=== PATIENT | male | born 1970 | race Caucasian/White ===

== ENCOUNTER 2018-03-12 11:28 | Emergency (ER) | payer MEDICAID ==
[~2018-03-12] VITALS: Ht 177.8 cm; Wt 83.9 kg
[2018-03-12 11:37] VITALS: Ht 177.8 cm; Wt 83.9 kg
[2018-03-12 12:39] VITALS: BP 140/70
== END 2018-03-12 12:39 | disposition home or self-care (01) ==
LOC: ED 11:28
DX: J40 Bronchitis, not specified as acute or chronic (principal); G89.29 Other chronic pain; F31.9 Bipolar disorder, unspecified; F17.210 Nicotine dependence, cigarettes, uncomplicated; Z88.0 Allergy status to penicillin; Z91.030 Bee allergy status

== ENCOUNTER 2018-08-02 18:50 | Emergency (ER) | payer OTHER ==
[~2018-08-02] VITALS: Ht 175.3 cm; Wt 91.6 kg
[2018-08-02 18:59] VITALS: Ht 175.3 cm; Wt 91.6 kg
[2018-08-02 19:47] VITALS: BP 161/91
== END 2018-08-02 19:47 | disposition home or self-care (01) ==
LOC: ED 18:50
DX: S60.812A Abrasion of left wrist, initial encounter (principal); S60.811A Abrasion of right wrist, initial encounter; F20.9 Schizophrenia, unspecified; F17.210 Nicotine dependence, cigarettes, uncomplicated; Z98.890 Other specified postprocedural states; Z88.0 Allergy status to penicillin; Z91.030 Bee allergy status; X58.XXXA Exposure to other specified factors, initial encounter; Y93.89 Activity, other specified; Y92.89 Other specified places as the place of occurrence of the external cause; Y99.8 Other external cause status
CPT/HCPCS: 99406

== ENCOUNTER 2018-08-03 04:36 | Emergency (ER) | payer OTHER ==
[~2018-08-03] VITALS: Ht 175.3 cm; Wt 95.7 kg
[2018-08-03 04:41] VITALS: Ht 175.3 cm; Wt 95.7 kg
[2018-08-03 05:42] VITALS: BP 122/75
== END 2018-08-03 05:42 | disposition left against medical advice (07) ==
LOC: ED 04:36
DX: Z53.21 Procedure and treatment not carried out due to patient leaving prior to being seen by health care provider (principal)

== ENCOUNTER 2018-08-20 03:59 | Emergency (ER) | payer OTHER ==
[~2018-08-20] VITALS: Ht 175.3 cm; Wt 84.8 kg
[2018-08-20 04:07] VITALS: Ht 175.3 cm; Wt 84.8 kg
[2018-08-20 05:49] VITALS: BP 130/80
== END 2018-08-20 05:49 | disposition home or self-care (01) ==
LOC: ED 03:59
DX: S69.92XA Unspecified injury of left wrist, hand and finger(s), initial encounter (principal); F20.9 Schizophrenia, unspecified; G89.29 Other chronic pain; F31.9 Bipolar disorder, unspecified; Z88.0 Allergy status to penicillin; Z91.030 Bee allergy status; W46.0XXA Contact with hypodermic needle, initial encounter; Y93.89 Activity, other specified; Y92.89 Other specified places as the place of occurrence of the external cause; Y99.8 Other external cause status

== ENCOUNTER 2018-08-21 05:55 | Emergency (ER) | payer OTHER ==
[~2018-08-21] VITALS: Ht 175.3 cm; Wt 89.4 kg
[2018-08-21 06:00] VITALS: Ht 175.3 cm; Wt 89.4 kg
[2018-08-21 07:06] LABS: BASOPHIL % 0.3 % (0-2); PLATELET COUNT 193 x10^3mcL (130-400)
[2018-08-21 07:22] LABS: CALCIUM 8.7 mg/dL (8.5-10.1); CARBON DIOXIDE 25.6 mmol/L (21-32); CHLORIDE SERUM 102 mmol/L (98-107); CREATININE SERUM 0.9 mg/dL (0.7-1.3); GFR1 > 60 mL/min; GLUCOSE SERUM 83 mg/dL (74-106); POTASSIUM SERUM 3.2 mmol/L (3.5-5.1); SODIUM SERUM 140 mmol/L (136-145)
[2018-08-21 07:26] LABS: ALBUMIN 3.7 g/dL (3.4-5.0); ALKALINE PHOSPHATASE 55 U/L (46-116); ALT/SGPT 83 U/L (16-63); AST/SGOT 76 U/L (15-37); TOTAL PROTEIN, SERUM 7.1 g/dL (6.4-8.2)
[2018-08-21 09:50] VITALS: BP 110/66
== END 2018-08-21 09:50 | disposition home or self-care (01) ==
LOC: ED 05:55
PROVIDERS: Emergency Medicine
DX: L03.114 Cellulitis of left upper limb (principal); G89.29 Other chronic pain; Z98.890 Other specified postprocedural states; Z88.0 Allergy status to penicillin; Z91.030 Bee allergy status
CPT/HCPCS: J3370; J3490; J7040

== ENCOUNTER 2018-08-23 23:12 | Inpatient (IN) | payer OTHER ==
[~2018-08-23] VITALS: Ht 175.3 cm; Wt 86.2 kg
[2018-08-23 23:59] VITALS: Ht 175.3 cm; Wt 86.2 kg
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
[2018-08-24 00:50] LABS: BASOPHIL % 0.4 % (0-2); PLATELET COUNT 234 x10^3mcL (130-400); RED CELL DISTRIBUTION WIDTH 13.1 % (11.5-14.5)
--- NOTE | 2018-08-24 00:54 | NUR ---
SPOKE TO [employer] WITH ALLIED INSURANCE. GAVE MEDICAL PARAMETERS.
[2018-08-24 01:13] LABS: ALBUMIN 3.4 g/dL (3.4-5.0); ALKALINE PHOSPHATASE 52 U/L (46-116); ALT/SGPT 101 U/L (16-63); AST/SGOT 108 U/L (15-37); BILIRUBIN TOTAL 0.4 mg/dL (0.20-1.00); CALCIUM 8.7 mg/dL (8.5-10.1); CHLORIDE SERUM 102 mmol/L (98-107); GFR1 > 60 mL/min; GLUCOSE SERUM 99 mg/dL (74-106); SODIUM SERUM 139 mmol/L (136-145); TOTAL PROTEIN, SERUM 6.5 g/dL (6.4-8.2)
[2018-08-24] MEDS ORDERED: NEURONTIN100 MG (01:56)
[2018-08-24] MEDS ORDERED: GABAPENTIN100 M2 (01:57)
[2018-08-24] MEDS ORDERED: TRUVADA 200 MG1 EACH PO (01:57)
[2018-08-24] MEDS ORDERED: ISENTRESS400 MG PO (01:57)
[2018-08-24] MEDS ORDERED: CLINDAMYCIN HC300 MG PO (01:58)
[2018-08-24] MEDS ORDERED: BAC PO (01:58)
--- NOTE | 2018-08-24 02:15 | NUR ---
REPORT CALLED TO AJITH CASTANEDA TO ASSUME CARE OF PT.
--- NOTE | 2018-08-24 02:32 | NUR ---
PT TRANSFERRED TO MED/SURG BED 236B VIA GURNEY WITH EMT LEVI AT PT SIDE. PT TRANSFERRED WITHOUT INCIDENCE.
[2018-08-24 02:38] LABS: MAGNESIUM 1.9 mg/dL (1.8-2.4); PHOSPHOROUS 2.8 mg/dL (2.5-4.9)
[2018-08-24 02:43] LABS: CHOLESTEROL/HDL RATIO 2.2
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
[2018-08-24 03:05] LABS: T3 TOTAL 0.97 ng/mL
--- NOTE | 2018-08-24 03:05 | NUR ---
DR. GRESHAM AT BEDSIDE TO ASSESS THE PT.
[2018-08-24 03:06] LABS: FREE THYROXINE INDEX 2.3 ug/dL (1.4-4.5)
--- NOTE | 2018-08-24 03:40 | NUR ---
RUBINA AND KIMBERLEY TAKEN FROM PT. WILL BRING TO PHARMACY IN AM.
[2018-08-24 04:10] VITALS: BP 121/76
--- NOTE | 2018-08-24 04:11 | NUR ---
PT RESTING IN BED WITH EYES CLOSED. LAYING ON L SIDE. APPEARS TO BE SLEEPING. NO S/SX OF PAIN NOTED. BREATHING EVEN/UNLABORED ON RA. CALL LIGHT WITHIN REACH, BED AT LOWEST POSITION. WILL CONTINUE TO MONITOR.
[2018-08-24 04:20] LABS: microscopic required? NO
[2018-08-24 04:46] LABS: AMPHETAMINE QUAL UR NONE DETECTED (See below)
[2018-08-24 04:47] LABS: urine erythrocyte NEGATIVE (NEGATIVE)
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
--- NOTE | 2018-08-24 05:53 | NUR ---
PT RESTING IN BED WITH EYES CLOSED. SNORING QUIETLY. NO SIGNS OF DISTRESS NOTED. BREATHING EVEN/UNLABORED ON RA. DRESSING TO RH IN PLACE AND INTACT. CALL LIGHT WITHIN REACH, BED AT LOWEST POSITION. WILL ENDORSE TO DAY NURSE.
[2018-08-24 05:57] LABS: CALCIUM 8.3 mg/dL (8.5-10.1); CARBON DIOXIDE 27.6 mmol/L (21-32); CHLORIDE SERUM 105 mmol/L (98-107); GFR1 > 60 mL/min; GLUCOSE SERUM 107 mg/dL (74-106); POTASSIUM SERUM 3.2 mmol/L (3.5-5.1); SODIUM SERUM 140 mmol/L (136-145)
[2018-08-24 05:58] LABS: BASOPHIL % 0.3 % (0-2); PLATELET COUNT 227 x10^3mcL (130-400); RED CELL DISTRIBUTION WIDTH 13.5 % (11.5-14.5)
[2018-08-24 06:19] VITALS: BP 114/61
--- NOTE | 2018-08-24 06:30 | NUR ---
HOME MEDS BROUGHT DOWN TO PHARMACY FOR VERIFICATION.
--- NOTE | 2018-08-24 07:16 | NUR ---
RECEIVED REPORT FROM ADRIEN CASTANEDA. PT SLEEPING COMFORTABLY IN BED. IV TO RAC IS PATENT AND INFUSING NS @ 100 ML/HR. NO REDNESS OR PAIN. PT ON ROOM AIR. NO C/O SOB AND NO DISTRESS NOTED. ALL QUESTIONS AND CONCERNS ADDRESSED.
--- NOTE | 2018-08-24 08:40 | NUR ---
PT K+ 3.2 ORDERS ALREADY ENTERED BY .
[2018-08-24 09:31] VITALS: BP 125/79
--- NOTE | 2018-08-24 10:09 | NUR ---
PER PATIENT REQUEST, I REWRAPPED PT LT MIDDLE FINGER. DRESSING WAS FALLING OFF. 4X4 GAUZE APPLIED AND WRAPPED WITH KERLIX ROLL.
--- NOTE | 2018-08-24 15:43 | NUR ---
IN TO SEE AND ASSESS PATIENT AFTER LUNCH. PT SLEEPING COMFORTABLY IN BED. ALL NEEDS MET.
[2018-08-24 17:22] VITALS: BP 124/76
--- NOTE | 2018-08-24 19:10 | NUR ---
PT RECIEVED FROM THE DAY SHIFT RN. PT IS AWAKE AND ALERT X4, PT HAS RAPID SPEECH AT TIMES HARD TO UNDERSTAND. PT HAS BEEN NON COMPLIANT WITH CARE, ATTEMPTING TO REMOVE BANDAGE ON HIS LEFT MIDDLE FINGER. PT IS VERY TALKATIVE AND ANXIOUS. SAFETY AND COMFORT MEASURES MAINTAINED, BED IN LOWEST POSITION, CALL LIGHT WITHIN REACH, PT COMPLAINS OF PAIN, PT STATES IT IS A CONSTANT SHARP PAIN IN THE LEFT MIDDLE FINGER. PT WAS MEDICATED BEFORE CHANGE OF SHIFT BY RN VIJAY. WILL CONTINUE TO MONITOR AT THIS TIME.
--- NOTE | 2018-08-24 19:10 | NUR ---
AT CHANGE OF SHIFT REPORT IN PATIENTS ROOM. PT ATTEMPTING TO SILENCE IV PUMP ALARM, PT TURNED OFF THE PUMP AND PUT IT ON STANDBY, TONYA LINARES INSTRUCTED PT TO NOT ATTMEPT TO USE THE PUMP OR SILENCE ALARMS THAT IT IS POLICY THAT THE NURSING STAFF USES THE PUMP. PT SEEMS TO BE ANXIOUS AT THIS TIME. WILL CONTINUE TO MONITOR AT THIS TIME.
--- NOTE | 2018-08-24 19:36 | NUR ---
REPORT GIVEN TO JUJU CASTANEDA. PT RESTING COMFORTABLY IN BED. ALL NEEDS MET. ALL QUESTIONS AND CONCERNS ADDRESSED. ALL CARES ENDORSED.
[2018-08-24 19:40] VITALS: BP 145/73
--- NOTE | 2018-08-24 20:24 | NUR ---
PT WOUND REDRESSED, PT INSTRUCTED TO NOT REMOVE DRESSING. NO COMPLAINTS AT THIS TIME. WILL CONTINUE TO MONITOR.
--- NOTE | 2018-08-25 00:11 | NUR ---
PT IS RESTING IN BED WITH EYES CLOSED AND TV ON AT THIS TIME. NO ACUTE DISTRESS NOTED. IV INFUSING AND INTACT AT THIS TIME. NO S/S OF PAIN NOTED.
--- NOTE | 2018-08-25 01:32 | NUR ---
WHILE ON LUNCH BREAK WAS NOTIFIED BY TONYA REYES AND TONYA POLANCO HAD TALKED TO PATIENT ABOUT HAVING BEDSIDE CBD EDIBLES. PT HOME MEDS WERE TAKEN FROM THE PATIENT AND DR NICKERSON WAS IN ROOM TALKING TO PT ABOUT POLICY WITH HOME MEDICATIONS BEING TAKEN WITHOUT STAFF KNOWLEDGE. TONYA MATUTE WAS MADE AWARE WHEN RETURNED FROM LUNCH. AWAITING FOR ADMITTING STAFF TO COME AND TAKE THE MEDICATION. SECURITY WAS NOTIFIED, AND CAME TO THE PATIENTS ROOM.
--- NOTE | 2018-08-25 04:10 | NUR ---
PT COMPLAINING OF PAIN IN THE LEFT MIDDLE FINGER. PT STATES PAIN IS A 8/10 CONSTANT SHARP PAIN. PRN NORCO GIVEN. SAFETY AND COMFORT MEASURES MAINTAINED, BED IN LOWEST POSITION, CALL LIGHT WITHIN REACH.
[2018-08-25 04:38] VITALS: BP 133/64
--- NOTE | 2018-08-25 05:06 | NUR ---
PT HAS SLEPT IN INTERMITTENT INTERVALS. PT HAS BEEN ALERT AND ORIENTED X4, PT HAS BEEN ANXIOUS AT TIMES AND RAPID SPEECH. PT IS CURRENTLY RESTING IN BED WITH EYES CLOSED AND TV ON. NO ACUTE DISTRESS NOTED. NO S/S OF PAIN NOTED AT THIS TIME. SAFETY AND COMFORT MEASURES MAINTAINED, BED IN LOWEST POSITION, CALL LIGHT WITHIN REACH. WILL ENDORSE CONTINUITY OF CARE TO THE ONCOMING RN.
[2018-08-25 06:14] LABS: PLATELET COUNT 217 x10^3mcL (130-400); RED CELL DISTRIBUTION WIDTH 13.5 % (11.5-14.5)
[2018-08-25 06:30] LABS: CALCIUM 8.2 mg/dL (8.5-10.1); CARBON DIOXIDE 25.7 mmol/L (21-32); CHLORIDE SERUM 107 mmol/L (98-107); CREATININE SERUM 0.8 mg/dL (0.7-1.3); GFR1 > 60 mL/min; GLUCOSE SERUM 99 mg/dL (74-106); MAGNESIUM 1.9 mg/dL (1.8-2.4); PHOSPHOROUS 2.2 mg/dL (2.5-4.9); POTASSIUM SERUM 4.4 mmol/L (3.5-5.1); SODIUM SERUM 141 mmol/L (136-145)
--- NOTE | 2018-08-25 07:30 | NUR ---
PT ENDORSE TO ME THIS MORNING. AA/O X4. BREATHING EVEN AND UNLABORED ON RA. NO ACUTE RESP DISTRESS OR SOB NOTED. MEDSURG. DENIES ANY CP OR PRESSURE. LAST BM 08/25. VOIDS FREELY. AMB. L MIDDLE FINGER DRESSING INTACT/ NO NEW DRAINAGE NOTED. IV TO THE RAC INTACT AND PATENT, INFUSING AT 100ML/HR. CALL LIGHT IN REACH. BED IN LOW POSITION. WILL CONTINUE PLAN OF CARE.
[2018-08-25 08:52] VITALS: BP 158/77
[2018-08-25 11:43] LABS: ATYPICAL LYMPH 3 %; BAND NEUTROPHIL 1 % (0-10); BASOPHIL 0 % (0-2); MONOCYTE 14 % (0-7); SEGMENTED NEUTROPHILS 52 % (37-75)
[2018-08-25 11:44] LABS: PLATELET MORPHOLOGY PLATELETS DECREASED
[2018-08-25 11:46] LABS: rbc morphology (normal/abnorm) ABNORMAL (NORMAL)
--- NOTE | 2018-08-25 12:06 | NUR ---
MISSY MORAN AT BEDSIDE, PER OFFICER PT CALLED REPORTING A THEFT THAT TOOK PLACE PRIOR TO HIS ADMISSION. WILL CONTINUE TO MONITOR.
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
--- NOTE | 2018-08-25 14:57 | NUR ---
PT REQUESTING TO LEAVE AMA. IV REMOVED WITH CATHETER INTACT. NO REDNESS/INFLAMMATION/DISCOMFORT NOTED. PRIMARY NURSE, CHARGE NURSE. DIGITAL ACCOUNT COORDINATOR AND SECURTIY NOTIFIED THAT PT REQUESTING TO LEAVE AMA. RISKS OF LEAVING AMA AND PURPOSE OF TREATMENT EXPLAINED TO LEAVE. PT VERBALIZED UNDERSTANDING BUT CONTINUED TO WANT TO LEAVE AMA. PT PROVIDED WITH ORANGE SLIP FOR BELONGINGS IN SAFE, SECURITY AND DIGITAL ACCOUNT COORDINATOR NOTIFIED THAT PT TO BLAST FURNACE BLOWER AT THIS TIME.
--- NOTE | 2018-08-25 15:00 | NUR ---
PT REQUESTING TO LEAVE AMA. IV REMOVED WITH CATHETER INTACT. NO REDNESS/INFLAMMATION/DISCOMFORT NOTED. PRIMARY NURSE, CHARGE NURSE, DR CHAVEZ, INTERVENTIONAL RADIOLOGY RN AND SECURTIY NOTIFIED THAT PT REQUESTING TO LEAVE AMA. RISKS OF LEAVING AMA AND PURPOSE OF TREATMENT EXPLAINED TO PT. PT VERBALIZED UNDERSTANDING BUT CONTINUED TO WANT TO LEAVE AMA. PT PROVIDED WITH ORANGE SLIP FOR BELONGINGS IN SAFE, SECURITY AND INTERVENTIONAL RADIOLOGY RN NOTIFIED THAT PT TO MILK HAULER AT THIS TIME.
== END 2018-08-25 15:00 | disposition left against medical advice (07) | DRG 344 ==
LOC: ED 23:12 → MU 08-24 01:32
PROVIDERS: Emergency Medicine; ADMIT General Practice
PROC: 0X9K0ZZ Drainage of Left Hand, Open Approach (ICD-10-PCS; principal; 2018-08-24)
DX: M86.8X4 Other osteomyelitis, hand (principal); C62.90 Malignant neoplasm of unspecified testis, unspecified whether descended or undescended; E87.6 Hypokalemia; L02.512 Cutaneous abscess of left hand; F17.210 Nicotine dependence, cigarettes, uncomplicated; L03.114 Cellulitis of left upper limb; Z53.21 Procedure and treatment not carried out due to patient leaving prior to being seen by health care provider; Z88.0 Allergy status to penicillin; Z91.030 Bee allergy status; Z91.018 Allergy to other foods
CPT/HCPCS: 83880; 84439; 90658; G0480; J0696; J1885; J1956; J2001; J3370; J3490; J7030; J7050; Q0092

== ENCOUNTER 2018-09-21 14:44 | Emergency (ER) | payer OTHER ==
[~2018-09-21] VITALS: Ht 170.2 cm; Wt 79.8 kg
[~2018-09-21 14:44] MED LIST: BAC PO; CLINDAMYCIN HC300 MG PO; GABAPENTIN100 M2; ISENTRESS400 MG PO; NEURONTIN100 MG; TRUVADA 200 MG1 EACH PO
[2018-09-21 15:12] VITALS: Ht 170.2 cm; Wt 79.8 kg
[2018-09-21 16:32] VITALS: BP 130/83
== END 2018-09-21 16:32 | disposition home or self-care (01) ==
LOC: ED 14:44
DX: T63.391A Toxic effect of venom of other spider, accidental (unintentional), initial encounter (principal); L03.113 Cellulitis of right upper limb; F20.9 Schizophrenia, unspecified; F31.9 Bipolar disorder, unspecified; F17.200 Nicotine dependence, unspecified, uncomplicated; Z98.890 Other specified postprocedural states; Z88.0 Allergy status to penicillin; Y92.89 Other specified places as the place of occurrence of the external cause

== ENCOUNTER 2018-09-28 23:42 | Emergency (ER) | payer OTHER ==
[~2018-09-28] VITALS: Ht 175.3 cm; Wt 76.2 kg
[2018-09-28 23:49] VITALS: Ht 175.3 cm; Wt 76.2 kg
[2018-09-29 00:39] LABS: BASOPHIL % 0.3 % (0-2); PLATELET COUNT 322 x10^3mcL (130-400)
[2018-09-29 01:12] LABS: CARBON DIOXIDE 29.4 mmol/L (21-32); CHLORIDE SERUM 100 mmol/L (98-107); CREATININE SERUM 1.1 mg/dL (0.7-1.3); GFR1 > 60 mL/min; GLUCOSE SERUM 108 mg/dL (74-106); POTASSIUM SERUM 3.5 mmol/L (3.5-5.1); SODIUM SERUM 137 mmol/L (136-145)
[2018-09-29 01:16] LABS: ALKALINE PHOSPHATASE 93 U/L (46-116); ALT/SGPT 79 U/L (16-63); AST/SGOT 49 U/L (15-37); BILIRUBIN TOTAL 0.2 mg/dL (0.20-1.00); TOTAL PROTEIN, SERUM 6.6 g/dL (6.4-8.2)
[2018-09-29 01:33] LABS: ALBUMIN 3.1 g/dL (3.4-5.0)
[2018-09-29 04:18] VITALS: BP 124/68
== END 2018-09-29 04:18 | disposition home or self-care (01) ==
LOC: ED 23:42
PROVIDERS: Emergency Medicine
DX: L03.113 Cellulitis of right upper limb (principal); L02.413 Cutaneous abscess of right upper limb; F31.9 Bipolar disorder, unspecified; F12.90 Cannabis use, unspecified, uncomplicated; Z98.890 Other specified postprocedural states
CPT/HCPCS: J2001; J3490; J7030

== ENCOUNTER 2018-10-02 19:39 | Emergency (ER) | payer OTHER | END 2018-10-02 22:20 | disposition home or self-care (01) | LOC: ED 19:39 ==

== ENCOUNTER 2018-10-06 19:21 | Emergency (ER) | payer OTHER ==
[~2018-10-06] VITALS: Ht 175.3 cm; Wt 72.6 kg
[2018-10-06 20:11] VITALS: BP 113/76; Ht 175.3 cm; Wt 72.6 kg
== END 2018-10-06 20:22 | disposition left against medical advice (07) ==
LOC: ED 19:21
DX: Z53.21 Procedure and treatment not carried out due to patient leaving prior to being seen by health care provider (principal)

== ENCOUNTER 2018-10-06 22:26 | Emergency (ER) | payer OTHER ==
[~2018-10-06] VITALS: Ht 175.3 cm; Wt 76.2 kg
[2018-10-06 23:01] VITALS: Ht 175.3 cm; Wt 76.2 kg
[2018-10-07 01:34] VITALS: BP 130/84
== END 2018-10-07 01:34 | disposition home or self-care (01) ==
LOC: ED 22:26
DX: S09.8XXA Other specified injuries of head, initial encounter (principal); F43.10 Post-traumatic stress disorder, unspecified; F31.9 Bipolar disorder, unspecified; F20.9 Schizophrenia, unspecified; Z76.0 Encounter for issue of repeat prescription; Z88.0 Allergy status to penicillin; Z88.8 Allergy status to other drugs, medicaments and biological substances; Z91.018 Allergy to other foods; Z98.890 Other specified postprocedural states; Y04.8XXA Assault by other bodily force, initial encounter; Y93.89 Activity, other specified; Y92.89 Other specified places as the place of occurrence of the external cause; Y99.8 Other external cause status

== ENCOUNTER 2018-10-09 14:00 | Emergency (ER) | payer OTHER ==
[~2018-10-09] VITALS: Ht 175.3 cm; Wt 76.2 kg
[2018-10-09 14:04] VITALS: Ht 175.3 cm; Wt 76.2 kg
[2018-10-09 17:55] VITALS: BP 122/74
== END 2018-10-09 17:55 | disposition home or self-care (01) ==
LOC: ED 14:00
DX: L03.115 Cellulitis of right lower limb (principal); I10 Essential (primary) hypertension; F31.9 Bipolar disorder, unspecified; F20.9 Schizophrenia, unspecified; Z98.890 Other specified postprocedural states; Z88.0 Allergy status to penicillin; Z91.018 Allergy to other foods
CPT/HCPCS: J3490; Q0092

== ENCOUNTER 2018-10-16 23:42 | Inpatient (IN) | payer OTHER ==
[~2018-10-16] VITALS: Ht 175.3 cm; Wt 88.0 kg
[2018-10-16 23:50] VITALS: Ht 175.3 cm; Wt 88.0 kg
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
--- NOTE | 2018-10-17 01:33 | NUR ---
WHITE GOODS APPLIANCE TECH AT BEDSIDE.
[2018-10-17 01:46] LABS: microscopic required? NO
[2018-10-17 01:55] LABS: UA SPECIFIC GRAVITY <=1.005 (1.005-1.035); urine erythrocyte NEGATIVE (NEGATIVE)
[2018-10-17 01:59] LABS: CARBON DIOXIDE 27.3 mmol/L (21-32); CHLORIDE SERUM 103 mmol/L (98-107); CREATININE SERUM 1.1 mg/dL (0.7-1.3); GFR1 > 60 mL/min; GLUCOSE SERUM 89 mg/dL (74-106); SODIUM SERUM 139 mmol/L (136-145)
--- NOTE | 2018-10-17 02:02 | NUR ---
INTERNET SALES MANAGER AT BEDSIDE
[2018-10-17 02:04] LABS: BASOPHIL % 0.1 % (0-2); PLATELET COUNT 288 x10^3mcL (130-400); RED CELL DISTRIBUTION WIDTH 14.1 % (11.5-14.5)
[2018-10-17 02:05] LABS: ALKALINE PHOSPHATASE 65 U/L (46-116); ALT/SGPT 27 U/L (16-63); AST/SGOT 23 U/L (15-37); BILIRUBIN TOTAL 0.28 mg/dL (0.20-1.00); TOTAL PROTEIN, SERUM 6.5 g/dL (6.4-8.2)
[2018-10-17 02:23] LABS: AMPHETAMINE QUAL UR POSITIVE (See below)
--- NOTE | 2018-10-17 03:40 | NUR ---
PER DR. JIMENEZ MADE AWARE PT WEIGHS 88 KG. EMAR ORDER STS TO ADMINISTER 1MG/KG OF LOVENOX. PER DR. JIMENEZ, ADMINISTER 80 MG OF LOVENOX SQ. WILL CARRY OUT ORDER
--- NOTE | 2018-10-17 03:53 | NUR ---
SUPERVISOR CIGARETTE MAKING DEPARTMENT AT BEDSIDE FOR BLOOD DRAW
[2018-10-17] MEDS ORDERED: NEURONTIN100 MG PO (04:19)
[2018-10-17] MEDS ORDERED: LITHIUM CARBON150 MG PO (04:20)
[2018-10-17] MEDS ORDERED: RISPERDAL0.5 MG PO (04:20)
[2018-10-17] MEDS ORDERED: NORCO1 TA2 PO (04:20)
--- NOTE | 2018-10-17 04:27 | NUR ---
REPORT GIVEN TO RUDOLPH CASTANEDA FOR CONTINUITY OF CARE. ALL QUESTIONS/CONCERNS ADDRESSED AT THIS TIME
--- NOTE | 2018-10-17 04:35 | NUR ---
PT TRANSFERRED TO VIA [facility] ACCOMAPNIED BY MYSELF AND JOSE CARLOS HU. PT IS A/OX4. BREATHING IS E/U ON RA. NO S/S OF ACUTE DISTRESS NOTED. LAC IV REMAINS IN PLACE WITH NO S/S OF INFILTRATION NOTED. MARIANGEL ROSS TRANSFERRED WITH THE PT. RUDOLPH CASTANEDA TO ASSUME CARE
[2018-10-17 04:39] LABS: PHOSPHOROUS 3.4 mg/dL (2.5-4.9)
[2018-10-17 04:45] LABS: T3 TOTAL 0.97 ng/mL
[2018-10-17 04:48] LABS: FREE T4 0.87 ng/dL (0.76-1.46); FREE THYROXINE INDEX 1.9 ug/dL (1.4-4.5); T4(THYROXINE) 5.7 ug/dL (4.7-13.3)
[2018-10-17 04:51] LABS: CHOLESTEROL/HDL RATIO 2.5
[2018-10-17 04:54] VITALS: BP 121/65
--- NOTE | 2018-10-17 05:09 | NUR ---
RECEIVED PT FROM ER VIA [facility] ACCOMPANIED WITH NURSE AND EMT, PT SEEN, ALERT AND ORIENTED, DENIES HEADACHE OR DIZZINESS, BREATHING EVEN AND UNLABORED, LUNG SOUNDS CLEAR, ON ROOM AIR WITH SPO2:98%, NO RESP DISTRESS NOTED, ON TELE#20 NSR WITH ELEVATED T-WAVE, DENIES CHEST PAIN, IVF INFUSING WELL WITH ABX FROM ED, PULSES PALPABLE, WEAK PULSES TO BLE, RLE WITH REDNESS AND SWELLING, WARM TO TOUCH, NO OPEN WOUND, GENERALIZED WEAKNESS, BASELINE USE CRUTCHES AT MOTEL, ABD SOFT WITH ACTIVE BS, NO BM AT THIS TIME, VOIDING FREELY, NO DISTRESS NOTED, WILL KEEP TO MONITOR.
--- NOTE | 2018-10-17 05:25 | NUR ---
PT REFUSED LAB DRAW FOR LACTID ACID, DR LIYA SANTIAGO.
--- NOTE | 2018-10-17 06:39 | NUR ---
FABRICATION SPECIALIST CALLED, PT ON POWER SWITCHBOARD OPERATOR WITH NSR AND ELEVATED T-WAVE, PT SEEN, ASLEEP BUT EASILY AROUSABLE, DENIES CHEST PAIN OR ANY CHEST DISCOMFORT, INFUSING WELL, DR NICKERSON PAGED AND MADE AWARE.
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
[2018-10-17 09:27] VITALS: BP 121/78
== END 2018-10-17 10:59 | disposition left against medical advice (07) | DRG 197 ==
LOC: ED 23:42 → DU 10-17 04:04
PROVIDERS: Emergency Medicine; ADMIT General Practice
DX: I82.411 Acute embolism and thrombosis of right femoral vein (principal); E43 Unspecified severe protein-calorie malnutrition; G92 Toxic encephalopathy; F20.9 Schizophrenia, unspecified; F31.9 Bipolar disorder, unspecified; F43.10 Post-traumatic stress disorder, unspecified; G89.29 Other chronic pain; F15.929 Other stimulant use, unspecified with intoxication, unspecified; Z60.2 Problems related to living alone; M19.90 Unspecified osteoarthritis, unspecified site; Z53.21 Procedure and treatment not carried out due to patient leaving prior to being seen by health care provider; F12.90 Cannabis use, unspecified, uncomplicated; D64.9 Anemia, unspecified; I10 Essential (primary) hypertension; Z88.0 Allergy status to penicillin; Z88.8 Allergy status to other drugs, medicaments and biological substances; Z91.030 Bee allergy status; Z91.018 Allergy to other foods; Z79.899 Other long term (current) drug therapy
CPT/HCPCS: 83880; 84439; G0378; J1650; J1885; J3490; J7030; Q0092

== ENCOUNTER 2018-10-22 15:39 | Inpatient (IN) | payer OTHER ==
[~2018-10-22] VITALS: Ht 167.6 cm; Wt 72.6 kg
[~2018-10-22 15:39] MED LIST changes: +LITHIUM CARBON150 MG PO; +NEURONTIN100 MG PO; +NORCO1 TA2 PO; +RISPERDAL0.5 MG PO
[2018-10-22 15:42] VITALS: Ht 167.6 cm; Wt 72.6 kg
--- NOTE | 2018-10-22 16:08 | NUR ---
PT AWAKE AND ALERT. PT PRESENTS TO ED WITH C/O RT LEG PAIN. NAD. RESP E/U. PT AWAITING MSE IN POSITION OF COMFORT.
--- NOTE | 2018-10-22 16:34 | NUR ---
DR VINCENT AT BEDSIDE FOR MSE
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
--- NOTE | 2018-10-22 17:02 | NUR ---
PORTABLE XRAY AT BEDSIDE
--- NOTE | 2018-10-22 17:05 | NUR ---
PORTABLE ULTRASOUND AT BEDSIDE
[2018-10-22 17:11] LABS: BASOPHIL % 0.4 % (0-2)
[2018-10-22 17:17] LABS: PLATELET COUNT 427 x10^3mcL (130-400); RED CELL DISTRIBUTION WIDTH 14.6 % (11.5-14.5)
[2018-10-22 17:21] LABS: CALCIUM 9.2 mg/dL (8.5-10.1); CARBON DIOXIDE 31.5 mmol/L (21-32); CHLORIDE SERUM 102 mmol/L (98-107); CREATININE SERUM 0.9 mg/dL (0.7-1.3); GFR1 > 60 mL/min; GLUCOSE SERUM 83 mg/dL (74-106); POTASSIUM SERUM 4.3 mmol/L (3.5-5.1); SODIUM SERUM 136 mmol/L (136-145)
[2018-10-22 17:35] LABS: ALKALINE PHOSPHATASE 79 U/L (46-116); ALT/SGPT 91 U/L (16-63); AST/SGOT 80 U/L (15-37); BILIRUBIN TOTAL 0.46 mg/dL (0.20-1.00); TOTAL PROTEIN, SERUM 6.5 g/dL (6.4-8.2)
[2018-10-22 17:36] LABS: ALBUMIN 2.7 g/dL (3.4-5.0)
--- NOTE | 2018-10-22 18:07 | NUR ---
PT PROVIDED DINNER TRAY WITH PERMISSION FROM DR VINCENT
--- NOTE | 2018-10-22 18:58 | NUR ---
LEVAQUIN INITIATED AT THIS TIME PER MD ORDERS
--- NOTE | 2018-10-22 19:18 | NUR ---
REPORT GIVEN TO TITI BUSINESS SYSTEMS ANALYST NURSE TO ASSUME CARE OF PT
[2018-10-22 19:45] LABS: PHOSPHOROUS 3.8 mg/dL (2.5-4.9)
[2018-10-22 19:48] LABS: microscopic required? NO
[2018-10-22 20:03] LABS: UA SPECIFIC GRAVITY <=1.005 (1.005-1.035); urine erythrocyte NEGATIVE (NEGATIVE)
--- NOTE | 2018-10-22 20:03 | NUR ---
REPORT GIVEN TO TONYA MATUTEBENDING PRESS OPERATOR. ALL QUESTIONS AND CONCERNS ANSWERED.
[2018-10-22 20:11] LABS: AMPHETAMINE QUAL UR NONE DETECTED (See below)
--- NOTE | 2018-10-22 20:15 | NUR ---
RECEIVED PT VIA GUERNEY FROM E/D, ACCOMPANIED BY TRANSPORTER. PT A/A/O X 4 AT THE TIME, CALM, COOPERATIVE; STATES THAT HE WEARS GLASSES BUT DOES NOT HAVE IT W/ HIM. PT W/ WEAKNESS TO RLE, NWB, AMB W/ ASSIST, CRUTCH BY BEDSIDE; WAS ABLE TO GET HIM TO BED, AND SOON HE LAID DOWN, HE BECAME UNCOOPERATIVE AND STARTED TO PRETEND TO LIGHTLY SNORE; WAS ABLE TO OBTAIN SOME ANSWERS TO QUESTIONS. NO S/S CHEST PAIN OR DISCOMFORT AT THIS TIME. VINICIUS RADIAL PULSES PRESENT, VINICIUS PEDAL PULSES WEAK, CAP REFILL < 3 SECS, +3 NON-PITTING EDEMA TO RLE, SCD BY BEDSIDE. NO ACUTE RESPIRATORY DISTRESS NOTED. ABD SOFT, ROUND, NON-TENDER, NORMOACTIVE BOWEL SOUNDS X 4 QUADS, LAST BM 10/22/18, LOOSE. IV SITE LAC 18G, CDI. UNABLE TO ORIENT PT TO ANYTHING AT THIS TIME. BED IN LOW POSITION, SIDE RAILS UP X 2, CALL LIGHT WITHIN REACH. WILL ENDORSE TO TONYA MATUTE.
[2018-10-22 20:33] VITALS: BP 129/68
--- NOTE | 2018-10-22 21:18 | NUR ---
PT IS ABRASIVE AND BELIGERENT TO THE STAFF, PT HAS BEEN UNCOOPERATIVE WITH CARE AT THIS TIME. WILL CONTINUE TO MONITOR THE PATIENT AT THIS TIME.
--- NOTE | 2018-10-23 00:14 | NUR ---
PT IS RESTING IN BED WITH EYES CLOSED AT THIS TIME. CLEOCIN INFUSING, PT HAS BEEN ANGRY AND BELIGERENT WITH STAFF, NO S/S OF PAIN NOTED AT THIS TIME. SAFETY AND COMFORT MEASURES MAINTAINED, BED IN LOWEST POSITION, CALL LIGHT WITHIN REACH.
--- NOTE | 2018-10-23 03:45 | NUR ---
PT IS RESTING IN BED WITH EYES CLOSED AT THIS TIME. NO ACUTE DISTRESS NOTED.
[2018-10-23 05:19] VITALS: BP 135/69
--- NOTE | 2018-10-23 05:21 | NUR ---
PT HAS SLEPT IN LONG INTERVALS THROUGHOUT THE SHIFT. NO ACUTE DISTRESS NOTED. PT HAS BEEN ANGRY AND BELIGERENT WITH STAFF. IV IS INFUSING AND INTACT. NO S/S OF PAIN NOTED. PT IS CURRENTLY RESTING IN BED WITH EYES CLOSED AT THIS TIME. SAFETY AND COMFORT MEASURES MAINTAINED, BED IN LOWEST POSITION, CALL LIGHT WTIHIN REACH. WILL ENDORSE CONTINUITY OF CARE TO THE ONCOMING RN.
--- NOTE | 2018-10-23 07:25 | NUR ---
RECEIVED PT. IN BED A/A/O X3. NO SOB, NO N/V NOTED. PT. DENIES ANY PAIN AT THIS TIME. NS RUNNING AT 100 CC/HR VIA IV SITE AT L AC. BED IN LOW POS., CALL LIGHT WITHIN REACH. SIDE RAILS UP X3.
[2018-10-23 09:26] VITALS: BP 123/79
--- NOTE | 2018-10-23 11:46 | NUR ---
1. Recommend continuing regular diet as tolerated.
--- NOTE | 2018-10-23 11:46 | NUR ---
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, IVDA, HTN, reported HIV, DVT on Xarelto, and reported multiple cancers (no documented treatments for either HIV or any cancers) PSHx: Arthroscopy (R knee replacement) Labs: AST 80H, ALT 91H Meds: Colace, lithium carbonate, tums, vancocin, zofran Diet: Regular PO Intake: (10/23) breakfast 100% Ht: 167.64 cm (66") Wt: 72.5 kg (159#) BMI: 25.8 kg/m2 Bed scale: 72.5 kg IBW: 142# (65 kg) %IBW: 111 UBW: unable to access as pt was sleeping Age: 51/M Food Allergies: Fish, bee venom protein, cashew nut, almond, mushroom Skin: Swelling and redness to lower R leg Oswaldo: 18 Edema: swelling to RLE GI: Last BM: 10/22 Per H&P, Pt is a 51yoM with PMH unspecified psychiatric disease, 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 RDN Visit (10/23): Patient was sleeping and did not appear underweight or malnourished. Per MIRLANDE Stephenson, patient 'overeats', his PO is 100% and keep asking for more food. Per MIRLANDE, Pt did not have any N/V/D/C at this time. CLAIMS ADJUSTER CROP Seema said that patient wants to eat everything without any discretion co he thinks that "he is gonna anyways". FNS received consult for 'severe malnutrition, homeless patient' on 10/23. Problem with: N/V/D/C: no (per CLAIMS ADJUSTER CROP) Problems with: Chewing/Swallowing: none (per CLAIMS ADJUSTER CROP) Current appetite: Good Recent wt change: unable to access as pt was sleeping %wt change: N/A Vitamin/Supplement use: unable to access Special diet at home: unable to access Physical activity: unable to access Nutrition education given: unable to provide education as patient was sleeping. Will be provided during a F/U visit. Food-drug interactions: Colace- high fiber w/7591-0552 ml fluids Education given: no Estimated Nutritional Needs Based on current body weight 72.5 kg Energy: 7116-0202 kcal/d (25-30 kcal/kg) Protein: 58-72 g/d (0.8-1.0 g/kg) - preserve LBM Fluid: 5889-5651 ml/d (1 ml/kcal) or per doctor Nutrition Diagnosis 1. Altered nutrition related lab values related to medical condition as evidenced by AST 80, ALT 91. Intervention 1. Recommend continuing regular diet as tolerated. Monitor/Evaluate Goal: PO intake at least 75% of estimated needs Monitor: PO intake, Labs, GI function F/U in 7 days as low risk 10/30
--- NOTE | 2018-10-23 12:11 | NUR ---
1. Recommend continuing regular diet as tolerated.
--- NOTE | 2018-10-23 12:11 | NUR ---
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, IVDA, HTN, reported HIV, DVT on Xarelto, and reported multiple cancers (no documented treatments for either HIV or any cancers) PSHx: Arthroscopy (R knee replacement) Labs: AST 80H, ALT 91H Meds: Colace, lithium carbonate, tums, vancocin, zofran Diet: Regular PO Intake: (10/23) breakfast 100% Ht: 167.64 cm (66") Wt: 72.5 kg (159#) BMI: 25.8 kg/m2 Bed scale: 72.5 kg IBW: 142# (65 kg) %IBW: 111 UBW: unable to access as pt was sleeping Age: 51/M Food Allergies: Fish, bee venom protein, cashew nut, almond, mushroom Skin: Swelling and redness to lower R leg Oswaldo: 18 Edema: swelling to RLE GI: Last BM: 10/22 Per H&P, Pt is a 51yoM with PMH unspecified psychiatric disease, 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 RDN Visit (10/23): Patient was sleeping and did not appear underweight or malnourished. Per MIRLANDE Stephenson, patient 'overeats', his PO is 100% and keep asking for more food. Per MIRLANDE, Pt did not have any N/V/D/C at this time. ORGANISATION AND METHODS ANALYST Seema said that patient wants to eat everything without any discretion co he thinks that "he is gonna anyways". FNS received consult for 'severe malnutrition, homeless patient' on 10/23. Problem with: N/V/D/C: no (per ORGANISATION AND METHODS ANALYST) Problems with: Chewing/Swallowing: none (per ORGANISATION AND METHODS ANALYST) Current appetite: Good Recent wt change: unable to access as pt was sleeping %wt change: N/A Vitamin/Supplement use: unable to access Special diet at home: unable to access Physical activity: unable to access Nutrition education given: unable to provide education as patient was sleeping. Will be provided during a F/U visit. Food-drug interactions: Colace- high fiber w/2492-2407 ml fluids Education given: no Estimated Nutritional Needs Based on current body weight 72.5 kg Energy: 1954-9728 kcal/d (25-30 kcal/kg) Protein: 58-72 g/d (0.8-1.0 g/kg) - preserve LBM Fluid: 1681-8456 ml/d (1 ml/kcal) or per doctor Nutrition Diagnosis 1. Altered nutrition related lab values related to medical condition as evidenced by AST 80, ALT 91. Intervention 1. Recommend continuing regular diet as tolerated. Monitor/Evaluate Goal: PO intake at least 75% of estimated needs Monitor: PO intake, Labs, GI function F/U in 7 days as low risk 10/30
--- NOTE | 2018-10-23 16:15 | NUR ---
IT WAS REPORTED BY THE HOSPITAL WELFARE ADVISER THAT PT. WAS FOUND WANDERING IN EMERGENCY ROOM. PT. WAS THEN ESCORTED BY THE WELFARE ADVISER BACK TO ROOM (ROOM 223 B) AT 1622.
--- NOTE | 2018-10-23 16:30 | NUR ---
PT. STATED " I WANT TO LEAVE RIGHT NOW. I DON'T WANT TO STAY." PT. SIGNED A.M.A. FORM. IV H/L TO L AC REMOVED. HOSPITAL SECURITY GUARDS X2 AT BEDSIDE.
--- NOTE | 2018-10-23 16:45 | NUR ---
DR. CAVAZOS IN ROOM EXPLAINING TO PT. THE RISKS FOR LEAVING A.M.A.
--- NOTE | 2018-10-23 17:10 | NUR ---
PT. STATED HE WANTED TO WAIT FOR DINNER AND HAVE DINNER BEFORE LEAVING A.M.A.
--- NOTE | 2018-10-23 17:25 | NUR ---
PT. IS LEAVING A.M.A. AT THIS TIME. ALL BELONGINGS SENT WITH PT. UPON LEAVING. PT. WAS ESCORTED BY GARCIA CORREA R.N. UPON LEAVING.
== END 2018-10-23 17:24 | disposition left against medical advice (07) | DRG 383 ==
LOC: ED 15:39 → MU 19:12
PROVIDERS: Emergency Medicine; ADMIT Internal Medicine
DX: L03.115 Cellulitis of right lower limb (principal); E43 Unspecified severe protein-calorie malnutrition; F25.0 Schizoaffective disorder, bipolar type; F11.10 Opioid abuse, uncomplicated; F12.10 Cannabis abuse, uncomplicated; F15.10 Other stimulant abuse, uncomplicated; R74.0 Nonspecific elevation of levels of transaminase and lactic acid dehydrogenase [LDH]; D64.9 Anemia, unspecified; I10 Essential (primary) hypertension; Z53.21 Procedure and treatment not carried out due to patient leaving prior to being seen by health care provider; F31.9 Bipolar disorder, unspecified; M19.90 Unspecified osteoarthritis, unspecified site; L02.415 Cutaneous abscess of right lower limb; Z68.25 Body mass index [BMI] 25.0-25.9, adult; Z79.01 Long term (current) use of anticoagulants; Z86.718 Personal history of other venous thrombosis and embolism; Z91.030 Bee allergy status; Z88.0 Allergy status to penicillin; Z91.018 Allergy to other foods
CPT/HCPCS: 83880; G0378; J1885; J1956; J3370; J3490; J7030; Q0092

== ENCOUNTER 2018-10-26 01:28 | Emergency (ER) | payer OTHER ==
[~2018-10-26] VITALS: Ht 175.3 cm; Wt 68.0 kg
[2018-10-26 01:52] VITALS: Ht 175.3 cm; Wt 68.0 kg
[2018-10-26 02:03] LABS: BASOPHIL % 0.6 % (0-2); PLATELET COUNT 447 x10^3mcL (130-400); RED CELL DISTRIBUTION WIDTH 14.4 % (11.5-14.5)
[2018-10-26 02:14] LABS: CARBON DIOXIDE 26.2 mmol/L (21-32); CHLORIDE SERUM 104 mmol/L (98-107); CREATININE SERUM 0.7 mg/dL (0.7-1.3); GFR1 > 60 mL/min; GLUCOSE SERUM 97 mg/dL (74-106); POTASSIUM SERUM 4.4 mmol/L (3.5-5.1); SODIUM SERUM 143 mmol/L (136-145)
[2018-10-26 02:21] LABS: ALBUMIN 2.9 g/dL (3.4-5.0); ALKALINE PHOSPHATASE 67 U/L (46-116); ALT/SGPT 60 U/L (16-63); AST/SGOT 50 U/L (15-37); BILIRUBIN TOTAL 0.34 mg/dL (0.20-1.00); TOTAL PROTEIN, SERUM 6.1 g/dL (6.4-8.2)
[2018-10-26 03:14] LABS: AMPHETAMINE QUAL UR NONE DETECTED (See below)
[2018-10-26 06:52] VITALS: BP 116/50
== END 2018-10-26 06:52 | disposition home or self-care (01) ==
LOC: ED 01:28
PROVIDERS: Emergency Medicine
DX: R07.89 Other chest pain (principal); L03.115 Cellulitis of right lower limb; I10 Essential (primary) hypertension; F20.9 Schizophrenia, unspecified; F32.9 Major depressive disorder, single episode, unspecified; M19.90 Unspecified osteoarthritis, unspecified site; Z88.0 Allergy status to penicillin; Z91.013 Allergy to seafood; Z91.018 Allergy to other foods; Z91.030 Bee allergy status; Z98.890 Other specified postprocedural states
CPT/HCPCS: J1885; J7030

== ENCOUNTER 2018-10-28 13:41 | Emergency (ER) | payer OTHER | END 2018-10-28 15:00 | disposition other institution (70) | LOC: ED 13:41 | DX: Z02.89 Encounter for other administrative examinations (principal) ==

== ENCOUNTER 2018-10-28 13:41 | Emergency (ER) | payer OTHER ==
[~2018-10-28] VITALS: Ht 175.3 cm; Wt 68.0 kg
[2018-10-28 13:44] VITALS: BP 107/73; Ht 175.3 cm; Wt 68.0 kg
== END 2018-10-28 15:00 | disposition other institution (70) ==
LOC: ED 13:41
DX: L03.115 Cellulitis of right lower limb (principal); I10 Essential (primary) hypertension; Z76.0 Encounter for issue of repeat prescription; Z86.718 Personal history of other venous thrombosis and embolism; Z88.0 Allergy status to penicillin; Z91.010 Allergy to peanuts; Z91.018 Allergy to other foods; Z91.013 Allergy to seafood; F15.10 Other stimulant abuse, uncomplicated

== ENCOUNTER 2018-11-16 20:21 | Inpatient (IN) | payer MEDICAID ==
[~2018-11-16] VITALS: Ht 175.3 cm; Wt 78.9 kg
[2018-11-16 20:28] VITALS: Ht 175.3 cm; Wt 78.9 kg
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
[2018-11-16 21:04] LABS: BASOPHIL % 0.6 % (0-2); PLATELET COUNT 226 x10^3mcL (130-400); RED CELL DISTRIBUTION WIDTH 14.3 % (11.5-14.5)
[2018-11-16 21:11] LABS: CALCIUM 8.8 mg/dL (8.5-10.1); CARBON DIOXIDE 30.9 mmol/L (21-32); CHLORIDE SERUM 106 mmol/L (98-107); CREATININE SERUM 0.9 mg/dL (0.7-1.3); GFR1 > 60 mL/min; GLUCOSE SERUM 107 mg/dL (74-106); POTASSIUM SERUM 3.3 mmol/L (3.5-5.1); SODIUM SERUM 144 mmol/L (136-145)
--- NOTE | 2018-11-16 21:13 | NUR ---
PT MEDICATED PER ORDER. PT VERBALIZED UNDERSTANDING OF MEDICATION TEACHING. SEE EMAR FOR DETAILS.
[2018-11-16 21:16] LABS: ALBUMIN 3.2 g/dL (3.4-5.0); ALKALINE PHOSPHATASE 73 U/L (46-116); ALT/SGPT 24 U/L (16-63); AST/SGOT 19 U/L (15-37); BILIRUBIN TOTAL 0.2 mg/dL (0.20-1.00); TOTAL PROTEIN, SERUM 6.1 g/dL (6.4-8.2)
--- NOTE | 2018-11-17 00:39 | NUR ---
MEDICAL PARAMETERS GIVEN TO FRONT DESK HOST WITH ALLIED INS.
--- NOTE | 2018-11-17 01:45 | NUR ---
PT RESTING WITH EYES CLOSED. RESP EVEN AND UNLABORED.
--- NOTE | 2018-11-17 02:00 | NUR ---
PT SLEEPING ON GURNEY IN POSITION OF COMFORT, EASILY ARROUSEABLE. PT MOVING FROM SIDE TO SIDE. NO S/S OF DISTRESS. RESP E/U. WILL CONTINUE TO MONITOR.
--- NOTE | 2018-11-17 02:47 | NUR ---
REPORT GIVEN TO TONYA WOODS TO ASSUME CARE OF PT
--- NOTE | 2018-11-17 03:01 | NUR ---
PT SLEEPING ON GURNEY IN POSITION OF COMFORT. NO S/S OF DISTRESS. RESP E/U. PT EASILY ARROUSABLE. WILL CONTINUE TO MONITOR.
[2018-11-17 03:25] LABS: FREE T4 0.78 ng/dL (0.76-1.46)
[2018-11-17 03:26] LABS: T3 TOTAL 1.02 ng/mL
--- NOTE | 2018-11-17 03:26 | NUR ---
PT TRANSFERRED TO TELE FLOOR ACCOMPANIED BY NURSE AND EMT. NO S/S OF DISTRESS. RESP E/U. PT CONNECTED TO MONITOR DURING TRANSFER. IV SITE PATENT, NO S/S OF INFILTRATION. RN AT BEDSIDE TO ASSUME CARE OF PT.
--- NOTE | 2018-11-17 03:30 | NUR ---
RECEIVED PT FROM ER VIA GURNEY ACCOMPANIED BY THE ER NURSE. PT A/A/O X4. DENIES DIZZINESS AND HEADACHE. BREATH SOUNDS CLEAR. BREATHING EVEN AND UNLABORED ON ROOM AIR, SPO2 99%. DENIES CHEST PAIN AND PRESSURE THUS FAR. ON TELE # 27, SINUS RHYTHM ON THE MONITOR. BOWEL SOUNDS ACTIVE. NO C/O N/V AND ABD PAIN. ERYTHEMA AND MILD SWELLING NOTED ON THE RIGHT LOWER EXTREMITY OPEN TO AIR. WITH PAIN LEVEL OF 5/10 WHEN TOUCHED. DENIES NEED FOR PAIN MEDICATION THUS FAR. IV INTACT ON THE LAC. MADE PT COMFORTABLE. PLACED CALL LILT WITH IN REACH. WILL CONTINUE TO MONITOR.
[2018-11-17 03:46] VITALS: BP 96/53
[2018-11-17 03:51] LABS: FREE THYROXINE INDEX 1.5 ug/dL (1.4-4.5); T4(THYROXINE) 4.3 ug/dL (4.7-13.3)
[2018-11-17 03:54] VITALS: BP 96/53
[2018-11-17 04:14] LABS: MAGNESIUM 1.8 mg/dL (1.8-2.4); PHOSPHOROUS 4.7 mg/dL (2.5-4.9)
--- NOTE | 2018-11-17 06:05 | NUR ---
DR. ACKERMAN AT PATIENTS BEDSIDE SPEAKING WITH THE PT. MADE PT COMFORTABLE. WILL ENDORSE TO THE AM NURSE ACCORDINGLY.
[2018-11-17 07:22] LABS: BASOPHIL % 0.6 % (0-2); PLATELET COUNT 205 x10^3mcL (130-400)
[2018-11-17 07:29] LABS: RED CELL DISTRIBUTION WIDTH 14.8 % (11.5-14.5)
--- NOTE | 2018-11-17 08:00 | NUR ---
PATIENT IS IN BED, BED IS TO THE LOWEST POSITION. PATIENT IS ON ROOM AIR, BREATHING ADEQUATELY WITH NO SIGNS OF RESPIRATORY DISTRESS. PATIENT IS ALERT AND ORIENTED X 4. PATIENT STATES TO NOT HAVE ANY PAIN AT THIS TIME. RLE HAS EDEMA AND REDNESS NOTED. HEELS ARE OFF LOADED WITH PILLOWS, CALL LIGHT IS WITHIN REACH, WILL CONTINUE TO MONITOR.
[2018-11-17 08:30] VITALS: BP 103/63
[2018-11-17 09:13] VITALS: BP 103/63
[2018-11-17 09:24] LABS: CALCIUM 8.6 mg/dL (8.5-10.1); CARBON DIOXIDE 27.1 mmol/L (21-32); CHLORIDE SERUM 97 mmol/L (98-107); CREATININE SERUM 0.8 mg/dL (0.7-1.3); GFR1 > 60 mL/min; GLUCOSE SERUM 99 mg/dL (74-106)
[2018-11-17 09:50] LABS: POTASSIUM SERUM 3.8 mmol/L (3.5-5.1); SODIUM SERUM 146 mmol/L (136-145)
[2018-11-17 13:18] VITALS: BP 120/77
[2018-11-17 17:25] VITALS: BP 113/63
--- NOTE | 2018-11-17 17:55 | NUR ---
PATIENT YELLING ASKING FOR MORE FOOD. PATIENT PROVIDED WITH SNACKS FOR CARDIAC DIET. PATIENT ALSO EDUCATED ON DIET. WILL CONTINUE TO MONITOR.
--- NOTE | 2018-11-17 18:33 | NUR ---
PATIENT IN BED, AGITATED AT THIS TIME. PATIENT STATES THAT HE WANTS TO GO OUTSIDE. EXPLAINED TO PATIENT THAT WE CAN WALK AROUND INSIDE THE HOSPITAL. PATIENT STATED " NO. I WANT TO GO OUTSIDE, I HAVE BEEN IN THE HOSPITAL FOR WAY TOO LONG" PATIENT CLAIMS THAT HE WOULD LIKE TO TALK TO THE CHARGE NURSE AT THIS TIME. WILL ENDORSE REPORT TO CHARGE NURSE AND ONCOMING RN.
--- NOTE | 2018-11-17 18:59 | NUR ---
DR. HUMPHREY AWARE OF PATIENT LEAVING AMA. PATIENT SIGNED FORM, AND IS FREE FROM RESPIRATORY DISTRESS AT THIS TIME. SIGNAL WORKER TAKEN OFF AND IV TAKEN OFF AT THIS TIME.
[2018-11-17 23:51] LABS: UA SPECIFIC GRAVITY 1.015 (1.005-1.035); microscopic required? YES; urine erythrocyte 3+ (NEGATIVE)
[2018-11-17 23:59] LABS: AMPHETAMINE QUAL UR POSITIVE (See below)
== END 2018-11-17 19:00 | disposition left against medical advice (07) | DRG 383 ==
LOC: ED 20:21 → DU 11-17 02:05
PROVIDERS: Emergency Medicine; ADMIT Internal Medicine
DX: L03.115 Cellulitis of right lower limb (principal); N17.0 Acute kidney failure with tubular necrosis; E43 Unspecified severe protein-calorie malnutrition; F11.10 Opioid abuse, uncomplicated; E87.6 Hypokalemia; D64.9 Anemia, unspecified; I10 Essential (primary) hypertension; F31.9 Bipolar disorder, unspecified; F12.10 Cannabis abuse, uncomplicated; Z59.0 Homelessness; Z68.22 Body mass index [BMI] 22.0-22.9, adult; Z86.718 Personal history of other venous thrombosis and embolism; Z88.0 Allergy status to penicillin; Z91.030 Bee allergy status; Z91.018 Allergy to other foods; Z91.013 Allergy to seafood; Z53.21 Procedure and treatment not carried out due to patient leaving prior to being seen by health care provider
CPT/HCPCS: 83880; 84439; 85378; 90732; G0378; J1885; J1956; J3370; J3490; J7030; Q9967

== ENCOUNTER 2019-03-19 17:14 | Emergency (ER) | payer MEDICAID ==
[~2019-03-19] VITALS: Ht 175.3 cm; Wt 74.4 kg
[2019-03-19 17:46] VITALS: Ht 175.3 cm; Wt 74.4 kg
[2019-03-19 20:46] VITALS: BP 133/82
[2019-03-19 20:57] LABS: UA SPECIFIC GRAVITY 1.025 (1.005-1.035); microscopic required? YES; urine erythrocyte 2+ (NEGATIVE)
== END 2019-03-19 20:58 | disposition home or self-care (01) ==
LOC: ED 17:14
PROVIDERS: Emergency Medicine
DX: S70.02XA Contusion of left hip, initial encounter (principal); S40.012A Contusion of left shoulder, initial encounter; N39.0 Urinary tract infection, site not specified; I10 Essential (primary) hypertension; Z91.030 Bee allergy status; Z88.0 Allergy status to penicillin; Z91.013 Allergy to seafood; Z91.018 Allergy to other foods; Z90.49 Acquired absence of other specified parts of digestive tract; Z98.890 Other specified postprocedural states; W01.0XXA Fall on same level from slipping, tripping and stumbling without subsequent striking against object, initial encounter; Y93.89 Activity, other specified; Y92.89 Other specified places as the place of occurrence of the external cause; Y99.8 Other external cause status
CPT/HCPCS: 87491; 87591; 99406

== ENCOUNTER 2019-09-11 00:21 | Emergency (ER) | payer SELFPAY ==
[~2019-09-11] VITALS: Ht 175.3 cm; Wt 74.8 kg
[2019-09-11 00:30] VITALS: Ht 175.3 cm; Wt 74.8 kg
[2019-09-11 01:06] VITALS: BP 119/83
== END 2019-09-11 01:07 | disposition home or self-care (01) ==
LOC: ED 00:21
DX: K13.0 Diseases of lips (principal); I10 Essential (primary) hypertension; Z90.49 Acquired absence of other specified parts of digestive tract; Z91.030 Bee allergy status; Z88.0 Allergy status to penicillin; Z91.013 Allergy to seafood; Z91.018 Allergy to other foods; Z88.8 Allergy status to other drugs, medicaments and biological substances

== ENCOUNTER 2019-12-18 15:09 | Emergency (ER) | payer MEDICAID ==
[~2019-12-18] VITALS: Ht 175.3 cm; Wt 74.4 kg
[2019-12-18 15:23] VITALS: BP 121/75; Ht 175.3 cm; Wt 74.4 kg
== END 2019-12-18 17:18 | disposition home or self-care (01) ==
LOC: ED 15:09
DX: L02.511 Cutaneous abscess of right hand (principal)
CPT/HCPCS: J2001

== ENCOUNTER 2020-02-14 06:45 | Emergency (ER) | payer MEDICAID ==
[~2020-02-14] VITALS: Ht 175.3 cm; Wt 76.4 kg
[2020-02-14 06:52] VITALS: Ht 175.3 cm; Wt 76.4 kg
[2020-02-14 08:00] VITALS: BP 123/81
== END 2020-02-14 08:00 | disposition home or self-care (01) ==
LOC: ED 06:45
DX: L03.211 Cellulitis of face (principal); F17.210 Nicotine dependence, cigarettes, uncomplicated; Z71.6 Tobacco abuse counseling; I10 Essential (primary) hypertension; Z98.890 Other specified postprocedural states; Z91.018 Allergy to other foods; Z88.0 Allergy status to penicillin; Z91.013 Allergy to seafood
CPT/HCPCS: 99406